=== PATIENT | female | born 1930 | race Caucasian/White ===

== ENCOUNTER 2017-09-23 22:23 | Inpatient (IN) | payer OTHER ==
[~2017-09-23] VITALS: Ht 167.6 cm; Wt 71.7 kg
[~2017-09-23 22:23] MED LIST: GABAPENTIN300 MG PO; HYDROCHLOROTHIA25 MG PO; LASIX20 MG PO; LATANOPROST2.5 ML; LORAZEPAM1 MG PO; TRAMADOL HCL50 MG PO; TRUSOPT5 ML BOTH EYES; VERAPAMIL PO; XALATAN2.5 ML BOTH EYES
[2017-09-23 23:57] LABS: HEMATOCRIT 35.2 % (36.0-46.0); HEMOGLOBIN 12.7 G/DL (11.9-15.5); MCH 32.6 PG (29.0-34.0); MCHC 36.1 G/DL (30.0-36.0); MCV 90.5 FL (83-99); NRBC (%) 0.1 /100 WBC (0-0); RBC DIS.WIDTH-CV 11.9 % (11.8-14.6); RBC DIS.WIDTH-SD 39.1 % (39-53); RED BLOOD COUNT 3.89 M/uL (3.80-5.20)
[2017-09-23 23:59] LABS: ALBUMIN 3.9 g/dL (3.2-4.8); CHLORIDE 92 mEq/L (99-109); SODIUM 130 mEq/L (136-147)
[2017-09-24 00:01] LABS: GLUCOSE 149 mg/dL (70-99); TOTAL PROTEIN 6.4 g/dL (6.4-8.3); WHITE BLOOD COUNT 35.1 K/uL (4.1-10.2)
[2017-09-24 00:03] LABS: TOTAL BILIRUBIN 0.8 mg/dL (0.0-1.0)
[2017-09-24 00:05] LABS: ALKALINE PHOSPHATASE 66 IU/L (3-129); GFR ESTIMATE (CALCULATED) 56 mL/min/
[2017-09-24 00:06] LABS: UREA NITROGEN (BUN) 16 mg/dL (9-23)
[2017-09-24 00:07] LABS: AST (GOT) 26 IU/L (2-34)
[2017-09-24 00:08] LABS: ALT (GPT) 13 IU/L (3-49); LIPASE 25 U/L (1.0-51.0)
[2017-09-24] MEDS ORDERED: VERAPAMIL HCL240 MG PO (01:48)
[2017-09-24 01:49] LABS: PLAT.SUFFICIENCY ADEQUATE
[2017-09-24] MEDS ORDERED: CILOSTAZOL100 MG PO (01:49)
[2017-09-24] MEDS ORDERED: ESCITALOPRAM OX10 MG PO (01:49)
[2017-09-24 02:05] LABS: ABS NEUTROPHIL COUNT 13.8; ATYPICAL LYMPHOCYTE 16.1 %; BASOPHILS 0.4 %; EOSINOPHIL ABS CT 0; LYMPHOCYTES 38.4 % (15.0-45.0); METAMYELOCYTES 2.2 %; MONOCYTES 3.6 % (0-9.0); PLATELET COUNT 238 K/uL (156-360); SEG.NEUTROPHILS 39.3 % (46.0-76.0)
[2017-09-24 08:38] LABS: BASOPHIL (%) 0.3 % (0-1); BASOPHIL COUNT 0.1 K/uL (0-0.1); EOSINOPHIL (%) 0.2 % (0-5); EOSINOPHIL COUNT 0.1 K/uL (0-0.3); HEMATOCRIT 32.4 % (36.0-46.0); HEMOGLOBIN 11.9 G/DL (11.9-15.5); IMMATURE GRANULOCYTE (%) 1.4 % (0.0-0.7); LYMPHOCYTE (%) 56.4 % (15-42); LYMPHOCYTE COUNT 16.8 K/uL (1.0-2.8); MCH 33.8 PG (29.0-34.0); MCHC 36.7 G/DL (30.0-36.0); MONOCYTE (%) 4.1 % (3-12); MONOCYTE COUNT 1.2 K/uL (0-0.8); NEUTROPHIL (%) 37.6 % (45-76); NEUTROPHIL COUNT 11.2 K/uL (1.8-6.4); NRBC (%) 0.1 /100 WBC (0-0); PLATELET COUNT 212 K/uL (156-360); RBC DIS.WIDTH-CV 12.2 % (11.8-14.6); RBC DIS.WIDTH-SD 40.8 % (39-53); RED BLOOD COUNT 3.52 M/uL (3.80-5.20); WHITE BLOOD COUNT 29.8 K/uL (4.1-10.2)
[2017-09-24 10:05] LABS: ALBUMIN 3.4 g/dL (3.2-4.8); CHLORIDE 97 mEq/L (99-109); SODIUM 129 mEq/L (136-147)
[2017-09-24 10:06] LABS: MAGNESIUM 1.6 mg/dL (1.3-2.7)
[2017-09-24 10:08] LABS: GLUCOSE 134 mg/dL (70-99)
[2017-09-24 10:09] LABS: TOTAL BILIRUBIN 0.8 mg/dL (0.0-1.0); TOTAL PROTEIN 5.2 g/dL (6.4-8.3)
[2017-09-24 10:11] LABS: ALKALINE PHOSPHATASE 53 IU/L (3-129); CREATININE 0.9 mg/dL (0.6-1.3); GFR ESTIMATE (CALCULATED) > 59 mL/min/; PHOSPHORUS 2.6 mg/dL (2.5-4.9)
[2017-09-24 10:12] LABS: UREA NITROGEN (BUN) 13 mg/dL (9-23)
[2017-09-24 10:13] LABS: AST (GOT) 26 IU/L (2-34)
[2017-09-24 10:14] LABS: ALT (GPT) 11 IU/L (3-49)
[2017-09-24 17:42] VITALS: BP 133/6
[2017-09-24 19:28] VITALS: BP 119/56
[2017-09-24 23:17] VITALS: BP 144/78
[2017-09-25 04:50] VITALS: BP 120/58
[2017-09-25 07:49] VITALS: BP 117/58
[2017-09-25 10:30] LABS: ALBUMIN 2.9 G/DL (3.2-4.8); ALKALINE PHOSPHATASE 43 IU/L (3-129); ALT (GPT) 8 IU/L (3-49); AST (GOT) 22 IU/L (2-34); CHLORIDE 98 MEQ/L (99-109); CREATININE 0.8 MG/DL (0.6-1.3); GFR ESTIMATE (CALCULATED) > 59 mL/min/; MAGNESIUM 1.7 mg/dl (1.3-2.7); PHOSPHORUS 2.7 mg/dL (2.5-4.9); POTASSIUM 2.9 MEQ/L (3.7-5.4); SODIUM 135 MEQ/L (136-147); TOTAL BILIRUBIN 0.6 MG/DL (0.0-1.0); TOTAL PROTEIN 4.7 G/DL (6.4-8.3); UREA NITROGEN (BUN) 13 mg/dL (9-23)
[2017-09-25 10:31] LABS: GLUCOSE 98 mg/dL (70-99)
[2017-09-25 11:08] LABS: HEMATOCRIT 32.3 % (36.0-46.0); HEMOGLOBIN 11.1 G/DL (11.9-15.5); MCH 32.2 PG (29.0-34.0); MCHC 34.4 G/DL (30.0-36.0); MCV 93.6 FL (83-99); PLATELET COUNT 215 K/uL (156-360); RBC DIS.WIDTH-CV 12.5 % (11.8-14.6); RED BLOOD COUNT 3.45 M/uL (3.80-5.20)
[2017-09-25 11:09] LABS: WHITE BLOOD COUNT 35.5 K/uL (4.1-10.2)
[2017-09-25 11:51] VITALS: BP 100/53
[2017-09-25 12:02] LABS: ANISOCYTOSIS 1+
[2017-09-25 12:03] LABS: ABS NEUTROPHIL COUNT 14.7; ATYPICAL LYMPHOCYTE 2.4 %; BAND NEUTROPHILS 0.9 % (0-8.0); EOSINOPHIL ABS CT 0; METAMYELOCYTES 0.9 %; MONOCYTES 3.8 % (0-9.0); SEG.NEUTROPHILS 40.6 % (46.0-76.0); SMUDGE CELLS 74.1
[2017-09-25] MEDS ORDERED: COSOPT EYE DROP10 ML BOTH EYES (13:02)
[2017-09-25 15:58] VITALS: BP 121/56
[2017-09-25 19:41] VITALS: BP 124/59
[2017-09-25 23:40] VITALS: BP 130/59
[2017-09-26 04:10] VITALS: BP 126/78
[2017-09-26 08:04] VITALS: BP 127/96
[2017-09-26 08:53] LABS: HEMATOCRIT 33.7 % (36.0-46.0); HEMOGLOBIN 11.5 G/DL (11.9-15.5); MCH 32.3 PG (29.0-34.0); MCHC 34.1 G/DL (30.0-36.0); MCV 94.7 FL (83-99); PLATELET COUNT 211 K/uL (156-360); RBC DIS.WIDTH-CV 12.7 % (11.8-14.6); RBC DIS.WIDTH-SD 44.1 % (39-53); RED BLOOD COUNT 3.56 M/uL (3.80-5.20); WHITE BLOOD COUNT 23.7 K/uL (4.1-10.2)
[2017-09-26 09:23] LABS: CHLORIDE 100 MEQ/L (99-109); POTASSIUM 3.4 MEQ/L (3.7-5.4); SODIUM 137 MEQ/L (136-147)
[2017-09-26 09:29] LABS: CREATININE 0.9 MG/DL (0.6-1.3); GFR ESTIMATE (CALCULATED) > 59 mL/min/; GLUCOSE 92 mg/dL (70-99); UREA NITROGEN (BUN) 12 mg/dL (9-23)
[2017-09-26 11:46] VITALS: BP 118/58
[2017-09-26 17:01] VITALS: BP 133/63
[2017-09-26 19:50] VITALS: BP 131/62
[2017-09-27 01:16] VITALS: BP 119/58
[2017-09-27 05:07] VITALS: BP 123/63
[2017-09-27 07:21] VITALS: BP 141/62
[2017-09-27 12:07] VITALS: BP 116/55
[2017-09-27 12:18] LABS: HEMATOCRIT 33.6 % (36.0-46.0); HEMOGLOBIN 11.4 G/DL (11.9-15.5); MCH 32.1 PG (29.0-34.0); MCHC 33.9 G/DL (30.0-36.0); MCV 94.6 FL (83-99); PLATELET COUNT 216 K/uL (156-360); RBC DIS.WIDTH-CV 12.5 % (11.8-14.6); RBC DIS.WIDTH-SD 43.6 % (39-53); RED BLOOD COUNT 3.55 M/uL (3.80-5.20); WHITE BLOOD COUNT 22.4 K/uL (4.1-10.2)
[2017-09-27 12:46] LABS: CHLORIDE 101 MEQ/L (99-109); POTASSIUM 3.4 MEQ/L (3.7-5.4); SODIUM 137 MEQ/L (136-147)
[2017-09-27 12:51] LABS: CREATININE 0.8 MG/DL (0.6-1.3); GFR ESTIMATE (CALCULATED) > 59 mL/min/; GLUCOSE 137 mg/dL (70-99); UREA NITROGEN (BUN) 8 mg/dL (9-23)
[2017-09-27 16:44] VITALS: BP 139/65
[2017-09-27 17:09] LABS: APPEARANCE CLEAR ((CLEAR)); BILIRUBIN NEGATIVE; BLOOD NEGATIVE; COLOR YELLOW ((YELLOW)); GLUCOSE (STRIP) NEGATIVE; KETONES NEGATIVE; LEUKOCYTES NEGATIVE; NITRITE NEGATIVE; PROTEIN (STRIP) NEGATIVE; SPECIFIC GRAVITY 1.005 (1.000-1.030); UCUL ADDED? NO
[2017-09-27 19:30] VITALS: BP 132/62
[2017-09-28] VITALS: BP 128/58
[2017-09-28 02:26] VITALS: BP 132/69
[2017-09-28 05:58] LABS: HEMATOCRIT 30.8 % (36.0-46.0); HEMOGLOBIN 10.5 G/DL (11.9-15.5); MCH 32.5 PG (29.0-34.0); MCHC 34.1 G/DL (30.0-36.0); MCV 95.4 FL (83-99); NRBC (%) 0.1 /100 WBC (0-0); PLATELET COUNT 197 K/uL (156-360); RBC DIS.WIDTH-CV 12.4 % (11.8-14.6); RBC DIS.WIDTH-SD 43.2 % (39-53); RED BLOOD COUNT 3.23 M/uL (3.80-5.20); WHITE BLOOD COUNT 20.1 K/uL (4.1-10.2)
[2017-09-28 06:22] LABS: ALBUMIN 2.9 G/DL (3.2-4.8); ALKALINE PHOSPHATASE 46 IU/L (3-129); ALT (GPT) 11 IU/L (3-49); AST (GOT) 20 IU/L (2-34); CHLORIDE 102 MEQ/L (99-109); CREATININE 0.8 MG/DL (0.6-1.3); GFR ESTIMATE (CALCULATED) > 59 mL/min/; GLUCOSE 120 mg/dL (70-99); POTASSIUM 3.9 MEQ/L (3.7-5.4); SODIUM 137 MEQ/L (136-147); TOTAL BILIRUBIN 0.5 MG/DL (0.0-1.0); TOTAL PROTEIN 4.6 G/DL (6.4-8.3); UREA NITROGEN (BUN) 6 mg/dL (9-23)
[2017-09-28 09:02] VITALS: BP 123/59
[2017-09-28 11:18] VITALS: BP 121/58
[2017-09-28 19:50] VITALS: BP 134/60
[2017-09-28 23:43] VITALS: BP 101/49
[2017-09-29 03:36] VITALS: BP 105/55
[2017-09-29 05:40] LABS: HEMATOCRIT 31.3 % (36.0-46.0); HEMOGLOBIN 10.7 G/DL (11.9-15.5); MCH 32.9 PG (29.0-34.0); MCHC 34.2 G/DL (30.0-36.0); MCV 96.3 FL (83-99); PLATELET COUNT 193 K/uL (156-360); RBC DIS.WIDTH-CV 12.6 % (11.8-14.6); RBC DIS.WIDTH-SD 44.3 % (39-53); RED BLOOD COUNT 3.25 M/uL (3.80-5.20); WHITE BLOOD COUNT 22.2 K/uL (4.1-10.2)
[2017-09-29 08:13] VITALS: BP 132/56
[2017-09-29 11:31] VITALS: BP 139/64
[2017-09-29 16:11] VITALS: BP 138/65
[2017-09-29 20:15] VITALS: BP 143/63
[2017-09-29 23:32] VITALS: BP 115/56
[2017-09-30 03:57] VITALS: BP 119/58
[2017-09-30 06:43] LABS: HEMATOCRIT 33.5 % (36.0-46.0); HEMOGLOBIN 11.6 G/DL (11.9-15.5); MCHC 34.6 G/DL (30.0-36.0); MCV 95.4 FL (83-99); PLATELET COUNT 224 K/uL (156-360); RBC DIS.WIDTH-CV 12.7 % (11.8-14.6); RBC DIS.WIDTH-SD 44.1 % (39-53); RED BLOOD COUNT 3.51 M/uL (3.80-5.20); WHITE BLOOD COUNT 23.4 K/uL (4.1-10.2)
[2017-09-30 07:10] LABS: ALBUMIN 3.3 G/DL (3.2-4.8); ALKALINE PHOSPHATASE 48 IU/L (3-129); ALT (GPT) 11 IU/L (3-49); AST (GOT) 18 IU/L (2-34); CHLORIDE 99 MEQ/L (99-109); CREATININE 0.9 MG/DL (0.6-1.3); GFR ESTIMATE (CALCULATED) > 59 mL/min/; GLUCOSE 110 mg/dL (70-99); POTASSIUM 3.4 MEQ/L (3.7-5.4); SODIUM 136 MEQ/L (136-147); TOTAL BILIRUBIN 0.6 MG/DL (0.0-1.0); UREA NITROGEN (BUN) 6 mg/dL (9-23)
[2017-09-30 07:15] LABS: TOTAL PROTEIN 5.3 G/DL (6.4-8.3)
[2017-09-30 08:23] VITALS: BP 118/56
[2017-09-30 10:26] LABS: APPEARANCE CLEAR ((CLEAR)); BILIRUBIN NEGATIVE; BLOOD NEGATIVE; COLOR YELLOW ((YELLOW)); GLUCOSE (STRIP) NEGATIVE; KETONES NEGATIVE; LEUKOCYTES NEGATIVE; NITRITE NEGATIVE; PROTEIN (STRIP) NEGATIVE; SPECIFIC GRAVITY 1.012 (1.000-1.030); UCUL ADDED? NO
[2017-09-30 11:49] VITALS: BP 120/58
[2017-09-30 16:19] VITALS: BP 133/60
[2017-09-30 20:30] VITALS: BP 122/58
[2017-09-30 23:57] VITALS: BP 121/58
[2017-10-01 03:46] VITALS: BP 122/56
[2017-10-01 04:41] LABS: HEMATOCRIT 31.6 % (36.0-46.0); HEMOGLOBIN 10.8 G/DL (11.9-15.5); MCH 32.3 PG (29.0-34.0); MCHC 34.2 G/DL (30.0-36.0); MCV 94.6 FL (83-99); PLATELET COUNT 206 K/uL (156-360); RBC DIS.WIDTH-CV 12.6 % (11.8-14.6); RBC DIS.WIDTH-SD 43.6 % (39-53); RED BLOOD COUNT 3.34 M/uL (3.80-5.20); WHITE BLOOD COUNT 21.2 K/uL (4.1-10.2)
[2017-10-01 08:20] VITALS: BP 131/59
[2017-10-01 16:40] VITALS: BP 129/58
[2017-10-01 18:33] VITALS: BP 157/84
[2017-10-02 00:12] VITALS: BP 126/60
[2017-10-02 06:58] LABS: HEMATOCRIT 35.1 % (36.0-46.0); MCH 32.4 PG (29.0-34.0); MCHC 34.2 G/DL (30.0-36.0); MCV 94.9 FL (83-99); PLATELET COUNT 223 K/uL (156-360); RBC DIS.WIDTH-CV 12.8 % (11.8-14.6); RBC DIS.WIDTH-SD 44.2 % (39-53); WHITE BLOOD COUNT 16.5 K/uL (4.1-10.2)
[2017-10-02 07:28] VITALS: BP 121/56
[2017-10-02] MEDS ORDERED: BACTRIM,SEPT1 TABLET PO (09:57)
[2017-10-02] MEDS ORDERED: COLACE100 MG PO (10:06)
== END 2017-10-02 11:50 | disposition home or self-care (01) | DRG 335 ==
LOC: EME 22:23 → SDC 09-24 03:19 → 2SOUTH 09-24 04:59 → 4EAST 09-24 04:59 → ENRESERV 09-24 05:00 → 4EAST 09-24 17:30 → ENRESERV 09-28 01:05 → 4SOUTH 09-28 02:16
PROVIDERS: Emergency Medicine; Physician Assistant Surgical; Surgery
PROC: 0DN80ZZ Release Small Intestine, Open Approach (ICD-10-PCS; principal; 2017-09-24)
DX: K56.50 Intestinal adhesions [bands], unspecified as to partial versus complete obstruction (principal); S72.112A Displaced fracture of greater trochanter of left femur, initial encounter for closed fracture; I10 Essential (primary) hypertension; K57.90 Diverticulosis of intestine, part unspecified, without perforation or abscess without bleeding; K56.2 Volvulus; I73.9 Peripheral vascular disease, unspecified; H40.9 Unspecified glaucoma; D72.829 Elevated white blood cell count, unspecified; F41.9 Anxiety disorder, unspecified; Z68.33 Body mass index [BMI] 33.0-33.9, adult; Z79.899 Other long term (current) drug therapy; Z90.710 Acquired absence of both cervix and uterus; Z90.49 Acquired absence of other specified parts of digestive tract; Z91.81 History of falling; Z72.0 Tobacco use
CPT/HCPCS: 71045; 74177; 80048; 80053; 81003; 83605; 83690; 83735; 84100; 85025; 85027; 87040; 87493; 93005; 94799; 97530 GP; 99281; 99285; J1170; J1650; J2405; J2543; J3010; J3480; J7030; J7120; S0030